=== PATIENT | male | born 1995 | race Caucasian/White ===

== ENCOUNTER 2017-04-27 11:05 | Emergency (ER) | payer MEDICAID | END 2017-04-27 11:34 | disposition home or self-care (01) | LOC: D.ER 11:05 | DX: J03.90 Acute tonsillitis, unspecified (principal) ==

== ENCOUNTER 2017-11-27 03:26 | Emergency (ER) | payer MEDICAID ==
[~2017-11-27] VITALS: Ht 175.3 cm; Wt 87.1 kg
[2017-11-27 03:30] VITALS: Ht 175.3 cm; Wt 87.1 kg
[2017-11-27] MEDS ORDERED: SEROQUEL100 MG PO (03:34)
[2017-11-27] MEDS ORDERED: TYLENOL W/CODEI1 TAB PO (03:34)
[2017-11-27] MEDS ORDERED: ZOLOFT50 MG PO (03:34)
[2017-11-27] MEDS ORDERED: IBUPROFEN600 MG PO (03:34)
[2017-11-27] MEDS ORDERED: LITHIUM CARBON300 MG PO (03:34)
[2017-11-27 04:01] LABS: BASOPHILS 0.1 % (0-2); EOSINOPHILS 3.3 % (0-7); HEMATOCRIT 45.6 % (42.0-54.0); HEMOGLOBIN 15.7 g/dL (13.5-17.5); IMMATURE GRANULOCYTES 0.3 % (0-5); LYMPHOCYTES 23.6 % (15-50); MCH 28.4 pg (26.0-34.0); MCHC 34.4 g/dL (31.0-37.0); MCV 82.5 fL (80.0-100.0); MEAN PLATELET VOLUME 10.2 fL (7.4-10.4); MONOCYTES 10.5 % (2-11); NEUTROPHILS 62.2 % (40-80); PLATELET COUNT 196 10x3/uL (130-400); RBC 5.53 10x6/uL (4.20-6.10); RDW 12.9 % (11.5-14.5); WBC 7.6 10x3/uL (4.8-10.8)
[2017-11-27 04:09] LABS: APPEARANCE CLEAR (CLEAR); BILIRUBIN NEGATIVE (NEGATIVE); COLOR YELLOW (YELLOW); GLUCOSE NEGATIVE (NEGATIVE); KETONE NEGATIVE (NEGATIVE); NITRITE NEGATIVE (NEGATIVE); PROTEIN 1+ mg/dL (NEGATIVE); UROBILINOGEN NORMAL (NORMAL)
[2017-11-27 04:09] LABS: SALICYLATES 0.3 mg/dL (2.8-20.0)
[2017-11-27 04:11] LABS: BACTERIA FEW /hpf (NONE SEEN); EPITHELIAL CELLS 0-5 /hpf (0-5); HYALINE CAST 0-5 /lpf (NONE SEEN); MUCUS <1+ /lpf (NONE SEEN); RED CELLS - URINE 0-5 /hpf (0-5); UDS - AMPHET NEGATIVE QUAL (NEGATIVE); UDS - BARB NEGATIVE QUAL (NEGATIVE); UDS - BENZO NEGATIVE QUAL (NEGATIVE); UDS - COCAINE NEGATIVE QUAL (NEGATIVE); UDS - OPIATE NEGATIVE QUAL (NEGATIVE); UDS - PCP NEGATIVE QUAL (NEGATIVE); UDS - THC NEGATIVE QUAL (NEGATIVE)
[2017-11-27 04:12] LABS: LITHIUM 0.05 mmol/L (0.60-1.20)
[2017-11-27 04:16] LABS: ALBUMIN 4.1 g/dL (3.4-5.0); ALKALINE PHOSPHATASE 68 U/L (46-116); ALT (SGPT) 40 U/L (10-68); BILIRUBIN - TOTAL 0.52 mg/dL (0.2-1.3); CALC OSMOLALITY 280 mosm/kg (275-300); CALCIUM 9.4 mg/dL (8.5-10.1); CARBON DIOXIDE 29.1 mmol/L (21.0-32.0); CHLORIDE - SERUM 105 mmol/L (98-107); GLUCOSE 83 mg/dL (74-106); POTASSIUM - SERUM 3.6 mmol/L (3.5-5.1); PROTEIN - SERUM 7.7 g/dL (6.4-8.2); SODIUM 142 mmol/L (136-145); UREA NITROGEN 10 mg/dL (7-18); eGFR NON AFRICAN AMERICAN > 90 mL/min (90-120)
[2017-11-27 14:34] VITALS: BP 120/71
== END 2017-11-27 14:40 ==
LOC: D.ER 03:26
PROVIDERS: Family Medicine
DX: R45.851 Suicidal ideations (principal); Z86.59 Personal history of other mental and behavioral disorders; F17.200 Nicotine dependence, unspecified, uncomplicated

== ENCOUNTER 2017-12-05 19:12 | Emergency (ER) | payer MEDICAID ==
[~2017-12-05] VITALS: Ht 175.3 cm; Wt 87.7 kg
[~2017-12-05 19:12] MED LIST: IBUPROFEN600 MG PO; LITHIUM CARBON300 MG PO; SEROQUEL100 MG PO; TYLENOL W/CODEI1 TAB PO; ZOLOFT50 MG PO
[2017-12-05 19:14] VITALS: Ht 175.3 cm; Wt 87.7 kg
[2017-12-05] MEDS ORDERED: ZANAFLEX6 MG PO (19:19)
[2017-12-05] MEDS ORDERED: NEURONTIN 300300 MG PO (19:19)
[2017-12-05 19:48] LABS: UDS - AMPHET NEGATIVE QUAL (NEGATIVE); UDS - BARB NEGATIVE QUAL (NEGATIVE); UDS - BENZO NEGATIVE QUAL (NEGATIVE); UDS - COCAINE NEGATIVE QUAL (NEGATIVE); UDS - OPIATE NEGATIVE QUAL (NEGATIVE); UDS - PCP NEGATIVE QUAL (NEGATIVE); UDS - THC NEGATIVE QUAL (NEGATIVE)
[2017-12-05 20:16] LABS: BASOPHILS 0.2 % (0-2); HEMATOCRIT 44.6 % (42.0-54.0); HEMOGLOBIN 15.3 g/dL (13.5-17.5); LYMPHOCYTES 30.2 % (15-50); MCH 28.7 pg (26.0-34.0); MCHC 34.3 g/dL (31.0-37.0); MCV 83.7 fL (80.0-100.0); MEAN PLATELET VOLUME 10.1 fL (7.4-10.4); MONOCYTES 12.7 % (2-11); NEUTROPHILS 54.9 % (40-80); PLATELET COUNT 171 10x3/uL (130-400); RBC 5.33 10x6/uL (4.20-6.10); RDW 13.1 % (11.5-14.5); WBC 5.1 10x3/uL (4.8-10.8)
[2017-12-05 20:29] LABS: ALKALINE PHOSPHATASE 63 U/L (46-116); ALT (SGPT) 47 U/L (10-68); BILIRUBIN - TOTAL 0.37 mg/dL (0.2-1.3); CALC OSMOLALITY 274 mosm/kg (275-300); CALCIUM 9.1 mg/dL (8.5-10.1); CARBON DIOXIDE 34.1 mmol/L (21.0-32.0); CHLORIDE - SERUM 103 mmol/L (98-107); GLUCOSE 100 mg/dL (74-106); POTASSIUM - SERUM 3.8 mmol/L (3.5-5.1); PROTEIN - SERUM 7.5 g/dL (6.4-8.2); SODIUM 138 mmol/L (136-145); UREA NITROGEN 10 mg/dL (7-18); eGFR NON AFRICAN AMERICAN > 90 mL/min (90-120)
[2017-12-05 20:37] LABS: THYROID STIMULATING HORMONE 2.33 uIU/mL (0.36-3.74)
[2017-12-05 22:16] LABS: APPEARANCE CLEAR (CLEAR); BILIRUBIN NEGATIVE (NEGATIVE); COLOR YELLOW (YELLOW); GLUCOSE NEGATIVE (NEGATIVE); KETONE NEGATIVE (NEGATIVE); NITRITE NEGATIVE (NEGATIVE); PROTEIN NEGATIVE (NEGATIVE); SPECIFIC GRAVITY 1.005 (1.005-1.020); UROBILINOGEN NORMAL (NORMAL)
[2017-12-07 08:17] VITALS: BP 110/70
== END 2017-12-07 09:20 ==
LOC: D.ER 19:12
PROVIDERS: Family Medicine
DX: F31.9 Bipolar disorder, unspecified (principal); F43.10 Post-traumatic stress disorder, unspecified; X58.XXXA Exposure to other specified factors, initial encounter; Y93.9 Activity, unspecified; Y92.9 Unspecified place or not applicable; F15.10 Other stimulant abuse, uncomplicated; R45.851 Suicidal ideations

== ENCOUNTER 2018-01-09 14:12 | Emergency (ER) | payer MEDICAID ==
[~2018-01-09] VITALS: Ht 175.3 cm; Wt 81.8 kg
[~2018-01-09 14:12] MED LIST changes: +NEURONTIN 300300 MG PO; +ZANAFLEX6 MG PO
[2018-01-09 14:23] VITALS: Ht 175.3 cm; Wt 81.8 kg
[2018-01-09] MEDS ORDERED: TOPAMAX50 MG PO (14:27)
[2018-01-09 15:10] LABS: BASOPHILS 0.2 % (0-2); EOSINOPHILS 0.2 % (0-7); HEMATOCRIT 44.9 % (42.0-54.0); HEMOGLOBIN 15.7 g/dL (13.5-17.5); LYMPHOCYTES 25.4 % (15-50); MCH 28.4 pg (26.0-34.0); MCV 81.3 fL (80.0-100.0); MEAN PLATELET VOLUME 9.9 fL (7.4-10.4); MONOCYTES 9.3 % (2-11); NEUTROPHILS 64.9 % (40-80); PLATELET COUNT 156 10x3/uL (130-400); RBC 5.52 10x6/uL (4.20-6.10); WBC 4.9 10x3/uL (4.8-10.8)
[2018-01-09 15:24] LABS: ALKALINE PHOSPHATASE 67 U/L (46-116); ALT (SGPT) 29 U/L (10-68); BILIRUBIN - TOTAL 0.46 mg/dL (0.2-1.3); CALC OSMOLALITY 277 mosm/kg (275-300); CALCIUM 9.2 mg/dL (8.5-10.1); CARBON DIOXIDE 24.7 mmol/L (21.0-32.0); CHLORIDE - SERUM 106 mmol/L (98-107); CREATININE - SERUM 1.1 mg/dL (0.6-1.3); GLUCOSE 82 mg/dL (74-106); MAGNESIUM - SERUM 1.9 mg/dL (1.8-2.4); POTASSIUM - SERUM 3.8 mmol/L (3.5-5.1); PROTEIN - SERUM 7.4 g/dL (6.4-8.2); SODIUM 139 mmol/L (136-145); UREA NITROGEN 14 mg/dL (7-18); eGFR NON AFRICAN AMERICAN > 90 mL/min (90-120)
[2018-01-09 16:04] LABS: APPEARANCE CLEAR (CLEAR); BILIRUBIN NEGATIVE (NEGATIVE); COLOR DK YELLOW (YELLOW); GLUCOSE NEGATIVE (NEGATIVE); KETONE NEGATIVE (NEGATIVE); NITRITE NEGATIVE (NEGATIVE); PROTEIN NEGATIVE (NEGATIVE); SPECIFIC GRAVITY 1.025 (1.005-1.020); UROBILINOGEN NORMAL (NORMAL)
[2018-01-09 16:06] LABS: BACTERIA FEW /hpf (NONE SEEN); MUCUS <1+ /lpf (NONE SEEN); RED CELLS - URINE 0-5 /hpf (0-5)
[2018-01-09 16:10] LABS: UDS - AMPHET NEGATIVE QUAL (NEGATIVE); UDS - BARB NEGATIVE QUAL (NEGATIVE); UDS - BENZO NEGATIVE QUAL (NEGATIVE); UDS - COCAINE NEGATIVE QUAL (NEGATIVE); UDS - OPIATE NEGATIVE QUAL (NEGATIVE); UDS - PCP NEGATIVE QUAL (NEGATIVE); UDS - THC NEGATIVE QUAL (NEGATIVE)
[2018-01-09 19:17] VITALS: BP 123/78
== END 2018-01-09 19:00 ==
LOC: D.ER 14:12
PROVIDERS: Family Medicine
DX: R45.851 Suicidal ideations (principal)